=== PATIENT | male | born 2000 | race Caucasian/White ===

== ENCOUNTER 2022-12-17 19:21 | Emergency (ER) | payer OTHER ==
[~2022-12-17] VITALS: Ht 185.4 cm; Wt 90.7 kg
[2022-12-17 19:28] VITALS: BP 129/73
--- NOTE | 2022-12-17 19:34 | NUR ---
PT EVELIN HERNANDEZ. TAKEN TO BED 12
--- NOTE | 2022-12-17 20:06 | NUR ---
Patient resting in bed, awake, chest rise and fall symmetrical, no c/o pain or s/s of distress, on monitor.
--- NOTE | 2022-12-17 21:05 | NUR ---
[employer] IN[employer] OFFICER JUAN C LEFT NUMBER FOR [employer]
--- NOTE | 2022-12-17 21:10 | NUR ---
Patient resting in bed, A/Ox4, chest rise and fall symmetrical, no c/o pain or s/s of distress, on monitor.
[2022-12-17 22:00] VITALS: BP 100/56
--- NOTE | 2022-12-17 23:06 | NUR ---
Patient resting in bed, A/Ox4, chest rise and fall symmetrical, no c/o pain or s/s of distress, on monitor.
--- NOTE | 2022-12-18 00:13 | NUR ---
Patient presented to facility under the influence of Alcohol. Patient is currently ambulatory with steady gait, able to walk unassisted. Positive gag reflex. Alert and oriented. Is not driving self for discharge out of facility. Patient discharged at this time.
--- NOTE | 2022-12-18 00:14 | NUR ---
called on-call wilber s/w rj to arrange transportation. per rj will provide [employer] services
== END 2022-12-18 00:13 | disposition home or self-care (01) ==
LOC: MED 19:21
DX: F10.129 Alcohol abuse with intoxication, unspecified (principal); Y90.9 Presence of alcohol in blood, level not specified
CPT/HCPCS: 99283